=== PATIENT | male | born 1975 | race Caucasian/White ===

== ENCOUNTER 2017-07-31 14:52 | Emergency (ER) | payer MEDICAID ==
[2017-07-31 15:01] VITALS: TEMP 98.1
--- NOTE | 2017-07-31 15:21 | EDPHY ---
H & P Stated Complaint: Back pain/sciatica exacerbation~2wks;MRI scheduled next week Time Seen by Provider: 07/31/17 15:18 HPI/ROS: CHIEF COMPLAINT: Chronic back pain HISTORY OF PRESENT ILLNESS: The patient is a 42 y/o male complaining of worsening chronic back pain and sciatica for the past 3 weeks. 2 years ago he developed at L2-L3 disc herniation bed injury was treated with physical therapy the patient reports that he has been doing well and off of all narcotic pain medications for his back for quite some time. 3 weeks ago he was lifting something heavy and tweaked his back. He was seen at [facility] ED for the back pain, they prescribed him Percocet. He has also been using ibuprofen, which does not provide much relief. He saw his orthopedic referral and has a MRI scheduled for next week. He reports he is currently out of pain medications and that no one in the orthopedic office can see him until next week. He was advised come to the emergency department. Patient denies IV drug use. No fever, chills, chest pain, shortness of breath, palpitations, vomiting, diarrhea, urinary complaints, headache, lightheadedness. REVIEW OF SYSTEMS: Aside from elements discussed in the HPI, a comprehensive 10-point review of systems was reviewed and is negative. PAST MEDICAL HISTORY: Chronic back pain, sciatica SOCIAL HISTORY: Lives in [place], single, tobacco use VITAL SIGNS: HR: 104, BP: 145/99, others reviewed by me GENERAL: Uncomfortable appearing when moving around the bed. Well-developed, well-nourished, in no respiratory distress. HEENT: Atraumatic. Eyes: No icterus, no injection. Mouth: moist mucous membranes. No erythema or lesions. Neck: supple with no adenopathy. LUNGS: Clear to auscultation bilaterally, no wheezes, rhonchi or rales. CARDIAC: Regular rate and rhythm, no rubs, murmurs or gallops. ABDOMEN: Soft, nontender, nondistended, bowel sounds normal. BACK: Diffuse tenderness to palpation on lumbar spine. No point tenderness. No swelling. No CVA tenderness. No erythema. EXTREMITIES: No trauma. No edema. Range of motion is normal throughout, although movement of the right lower extremity elicits increased back pain. NEURO: Neurological exam: Straight leg raise test on the right elicits pain radiating into the buttocks and posterior right thigh. Hip flexion, knee extension, knee flexion, dorsiflexion and plantar flexion are 5/ 5 bilaterally. EHL 5 over 5. Sensation is intact to light touch throughout. 2+ knee and ankle jerk bilaterally. Vascular exam: Dorsalis pedis and posterior tibial pulses are intact. Brisk capillary refill. Alert and oriented. SKIN: Warm and dry, no rash. PSYCHIATRIC: Normal mentation, no agitation. Portions of this note were transcribed by a medical parasitologist. I personally performed a history, physical exam, medical decision making, and confirmed accuracy of information the transcribed note. - Personal History Current Tetanus Diphtheria and Acellular Pertussis (TDAP): Yes - Medical/Surgical History Hx Asthma: No Hx Chronic Respiratory Disease: No Hx Diabetes: No Hx Cardiac Disease: No Hx Renal Disease: No Hx Cirrhosis: No Hx Alcoholism: No Hx HIV/AIDS: No Hx Splenectomy or Spleen Trauma: No Other PMH: chronic back pain/sciatica. "narrow heart valve" - Social History Smoking Status: Current every day smoker Constitutional: Initial Vital Signs Temperature (C) 36.7 C 07/31/17 14:54 Heart Rate 104 H 07/31/17 14:54 Respiratory Rate 18 07/31/17 14:54 Blood Pressure 145/99 H 07/31/17 14:54 O2 Sat (%) 98 07/31/17 14:54 O2 Delivery Mode Room Air Allergies/Adverse Reactions: hydrocodone Allergy (Mild, Verified 07/31/17 14:59) itchy rash Home Medications: Medication Instructions Recorded Cyclobenzaprine [Flexeril 10 MG 10 mg PO TID PRN #15 tab 07/31/17 (*)] Gabapentin [Neurontin 300 MG (*)] 300 mg PO HS #10 cap 07/31/17 Tramadol HCl 50 mg PO QID PRN #20 tablet 07/31/17 methylPREDNISolone [Medrol Dose 4 mg PO DAILY #1 each 07/31/17 Nick] Medical Decision Making ED Course/Re-evaluation: The patient is a 42 y/o male with prior history of back pain and disc herniation presents following an acute exacerbation of his pain 3 weeks ago. Patient received non opiate medications for his pain. He was given ketamine IV , Decadron IV, Toradol IV, and lidocaine patch. 1545: Reassessed patient, his pain is not better. He is frustrated that he is unable to follow up with neurosurgery until next week and expresses frustration that he cannot work secondary to the pain. Patient feels his pain is best managed with small doses of opiates which providers have been reluctant to provide to him. I advised the patient that I would be able to treat his discomfort in the emergency department small dose of IV narcotic but would not discharged him with oral narcotics. We discussed other management strategies for the patient's pain. I encouraged him to follow up with Neurosurgery as soon as possible and to consider local injection. 1mg IV Dilaudid administered. Reassessed patient, he is feeling better. Return precautions provided; patient is comfortable with this plan. Differential Diagnosis: After history was obtained and physical exam performed, the differential for back pain was considered including but not limited to muscular pain, herniated disc, spine fracture, intra-abdominal causes, and urinary tract infection. - Data Points Medications Given: Discontinued Medications Dexamethasone (Decadron Injection) 8 mg IVP EDNOW ONE Stop: 07/31/17 15:35 Last Admin: 07/31/17 15:52 Dose: 8 mg Diazepam (Valium Injection) 5 mg IVP EDNOW ONE Stop: 07/31/17 15:35 Last Admin: 07/31/17 15:53 Dose: 5 mg Gabapentin (Neurontin) 600 mg PO EDNOW ONE Stop: 07/31/17 15:35 Last Admin: 07/31/17 15:53 Dose: 600 mg Hydromorphone HCl (Dilaudid) 1 mg IVP EDNOW ONE Stop: 07/31/17 16:48 Last Admin: 07/31/17 17:09 Dose: 1 mg Ketamine HCl (Ketamine) 15 mg 0.2 mg/kg (15 mg) IVP EDNOW ONE Stop: 07/31/17 15:35 Last Admin: 07/31/17 15:53 Dose: 15 mg Ketorolac Tromethamine (Toradol) 15 mg IVP EDNOW ONE Stop: 07/31/17 15:35 Last Admin: 07/31/17 15:53 Dose: 15 mg Lidocaine (Lidoderm 5%) 1 ea TD EDNOW ONE Stop: 07/31/17 15:35 Last Admin: 07/31/17 15:53 Dose: 1 ea Departure - Departure Disposition: Home, Routine, Self-Care Clinical Impression: Back pain Qualifiers: Back pain location: low back pain Chronicity: acute Back pain laterality: midline Sciatica presence: with sciatica Sciatica laterality: sciatica of right side Qualified Code(s): M54.41 - Lumbago with sciatica, right side Condition: Good Instructions: Acute Low Back Pain (ED), Lower Back Exercises (ED) Additional Instructions: Musculoskeletal pain is often treated with anti-inflammatories, muscle relaxants , and pain medications. ANTI-INFLAMMATORIES 1. I recommend Ibuprofen (Motrin, Advil) or Naproxen Sodium (Aleve) for pain and anti-inflammatory effects. You may take either one, but do not take both. Your dose is: Ibuprofen 600 mg every 6-8 hours with food. OR Naproxen Sodium (Aleve) 220 mg every 12 hours. You have also been given a prescription for a Medrol Dosepak to use as directed to treat inflammation. Please begin taking this tomorrow. MUSCLE RELAXANT 2. For muscle relaxation, you been given a prescription of Flexeril. Please take this as directed. It may make you sleepy. PAIN MEDICATION 3. For pain relief, I suggest high-dose Tylenol (650mg-1000mg of Tylenol) up to 3 times a day. Not exceed 3000 mg in a 24 hour period. I also suggest lidocaine patches. 4% lidocaine patches are available over-the- counter. 4. Please take the gabapentin as directed. 300 mg at night. This will help with neuropathic pain. Follow-up for your MRI as previously scheduled. Consider physical therapy or chiropractic followup for persistent discomfort. Return to the emergency department if you experience significantly worsening pain, pain radiating into the legs, weakness, numbness or tingling, difficulties with bowel or bladder, fever, nausea, vomiting, or other concerns. Referrals: Luis Daniel Campos MD [Primary Care Provider] - As per Instructions Prescriptions: Cyclobenzaprine [Flexeril 10 MG (*)] 10 mg PO TID PRN #15 tab PRN Reason: Spasms Gabapentin [Neurontin 300 MG (*)] 300 mg PO HS #10 cap methylPREDNISolone [Medrol Dose Nick] 4 mg PO DAILY #1 each Tramadol HCl 50 mg PO QID PRN #20 tablet PRN Reason: PAIN Report Scribed for: Angi Redd Report Scribed by: Dana Reese Date of Report: 07/31/17 Time of Report: 15:21
[2017-07-31] MEDS ORDERED: KETOROLAC 15 MG/1 ML SDV IVP ONE (15:34)
[2017-07-31] MEDS ORDERED: DEXAMETHASONE 4 MG/ML VIAL IVP ONE (15:34)
[2017-07-31] MEDS ORDERED: LIDOCAINE 5% 1 EA PATCH TD ONE (15:34)
[2017-07-31] MEDS ORDERED: GABAPENTIN 300 MG CAP PO ONE (15:34)
[2017-07-31] MEDS ORDERED: DIAZEPAM 10 MG/2 ML SYR IVP ONE (15:34)
[2017-07-31] MEDS ORDERED: KETAMINE 100 MG/10 ML SYR IVP ONE (15:34)
[2017-07-31] MEDS ORDERED: HYDROmorphONE/DILAUDID 1 MG/ML INJ IVP ONE (16:47)
[2017-07-31 17:11] VITALS: BP 130/94; PULSE 75; RESP 16; O2SAT 98
[2017-07-31] MEDS ORDERED: PATCH REMOVAL 1 EA PATCH TD SCH (21:00)
== END 2017-07-31 17:43 | disposition home or self-care (01) ==
LOC: EEVIPCON 14:52
DX: M54.41 Lumbago with sciatica, right side (principal); F17.200 Nicotine dependence, unspecified, uncomplicated
CPT/HCPCS: 96374; J1100; J1170; J1885

== ENCOUNTER 2017-08-17 08:01 | Emergency (ER) | payer MEDICAID ==
[2017-08-17 08:05] VITALS: PULSE 87
--- NOTE | 2017-08-17 08:33 | EDPHY ---
H & P Stated Complaint: Twisted R knee yesterday Time Seen by Provider: 08/17/17 08:25 HPI/ROS: Chief Complaint: Right knee injury HPI: The patient presents to the ED with complaints of right medial knee pain after he twisted his knee while jumping on a bed yesterday. The patient sustained an abrasion to the medial aspect of his knee. The patient reports he has had painful ambulation since the fall. The patient denies additional injury. He denies associated numbness or weakness. REVIEW OF SYSTEMS: Neuro: no headache, numbness, weakness Musculoskeletal: as above Skin: As above Source: Patient Exam Limitations: No limitations - Personal History Current Tetanus Diphtheria and Acellular Pertussis (TDAP): Yes - Medical/Surgical History Hx Asthma: No Hx Chronic Respiratory Disease: No Hx Diabetes: No Hx Cardiac Disease: No Hx Renal Disease: No Hx Cirrhosis: No Hx Alcoholism: No Hx HIV/AIDS: No Hx Splenectomy or Spleen Trauma: No Other PMH: chronic back pain/sciatica. "narrow heart valve" - Social History Smoking Status: Current every day smoker - Physical Exam Exam: General: No acute distress Right knee: Abrasion noted along the medial aspect of the right knee, nonsuturable, no evidence of a deep puncture present. Ecchymosis noted along the medial aspect of the right knee, tenderness to palpation along the MCL ligament and proximal tibia. Neuro: Sensation intact to light touch Vascular: 2+ dorsalis pedis and posterior tibial pulses Constitutional: Initial Vital Signs Temperature (C) 37.1 C 08/17/17 08:03 Heart Rate 87 08/17/17 08:03 Respiratory Rate 16 08/17/17 08:03 Blood Pressure 142/96 H 08/17/17 08:03 O2 Sat (%) 98 08/17/17 08:03 O2 Delivery Mode Room Air Allergies/Adverse Reactions: hydrocodone Allergy (Mild, Verified 08/17/17 08:02) itchy rash Home Medications: Medication Instructions Recorded NK [No Known Home Meds] 08/17/17 Medical Decision Making - Diagnostics Imaging Results: Imaging Impressions Knee X-Ray 08/17/17 08:30 Impression: There is no acute osseous abnormality identified. If there is progression of the patient's knee pain, MR imaging could be considered. Right knee x-ray: Negative for acute fracture by my interpretation. ED Course/Re-evaluation: The patient presents the emergency department for evaluation of right knee pain. The patient's x-ray demonstrates no evidence of an obvious fracture. He does have tenderness along the medial collateral ligament. The patient will be advised to follow up with our on-call orthopedic surgeon for any unimproved symptoms as this may be the sign of a more significant soft tissue injury not seen on the x-ray today. The patient is advised to weight bear as tolerated. He should ice and take ibuprofen for management of his pain. Differential Diagnosis: Differential diagnosis considered includes fracture, sprain, dislocation Departure - Departure Disposition: Home, Routine, Self-Care Clinical Impression: Knee MCL sprain Condition: Good Instructions: Knee Sprain (ED) Additional Instructions: 1. Take Ibuprofen or Motrin 600 mg by mouth three times a day. 2. Please schedule a follow-up appointment with the orthopedic surgeon you have been referred to for any pain which persists past 5-7 days as this may be the sign of an injury not seen on the x-ray today. 3. Follow up as scheduled with Dr. Campos. Referrals: Luis Daniel Campos MD [Primary Care Provider] - As per Instructions Judith Moreno MD [Medical Doctor] - As per Instructions
[2017-08-17 10:06] VITALS: BP 141/97; RESP 18; TEMP 98.4; O2SAT 97
== END 2017-08-17 10:08 | disposition home or self-care (01) ==
DX: S83.411A Sprain of medial collateral ligament of right knee, initial encounter (principal); F17.200 Nicotine dependence, unspecified, uncomplicated; X58.XXXA Exposure to other specified factors, initial encounter; Y99.8 Other external cause status; Y93.39 Activity, other involving climbing, rappelling and jumping off

== ENCOUNTER 2017-09-09 19:20 | Emergency (ER) | payer MEDICAID ==
--- NOTE | 2017-09-09 19:57 | EDPHY ---
H & P Stated Complaint: left foot pain no injury, x3 weeks HPI/ROS: Chief complaint: Left foot pain History of present illness: This is a 42-year-old male who presents to the emergency department for left foot pain. Patient reports the onset of symptoms approximately 3 weeks ago. Symptoms have been persistent. Pain begins at the base of the great toe. However, pain radiates throughout the foot. It hurts to touch or move or ambulate on the foot. He denies precipitating factors such as trauma. He denies other associated signs or symptoms including no fevers, no abnormal warmth or coolness to the foot, no paresthesias, no involvement of the ankle or the rest the leg. He did see his primary care doctor who diagnosed him with gout and started him on indomethacin with minimal improvement. - Personal History Current Tetanus Diphtheria and Acellular Pertussis (TDAP): Yes Tetanus Vaccine Date: 2015 - Medical/Surgical History Hx Asthma: No Hx Chronic Respiratory Disease: No Hx Diabetes: No Hx Cardiac Disease: No Hx Renal Disease: No Hx Cirrhosis: No Hx Alcoholism: No Hx HIV/AIDS: No Hx Splenectomy or Spleen Trauma: No Other PMH: chronic back pain/sciatica. "narrow heart valve" - Social History Smoking Status: Light smoker - Physical Exam Exam: General: Alert, nontoxic Skin: Mild erythema over the MCP joint of the left great toe. The rest the foot is unremarkable. Musculoskeletal: Tenderness to palpation of the left 1st MCP joint. Moving all digits in the foot and moving the left ankle well. Vascular: DP and PT pulses 2+. Capillary refill brisk in the left foot. Neurologic: Sensation intact throughout the left foot. Constitutional: Initial Vital Signs Temperature (C) 37.3 C 09/09/17 19:24 Heart Rate 98 09/09/17 19:24 Respiratory Rate 18 09/09/17 19:24 Blood Pressure 137/95 H 09/09/17 19:24 O2 Sat (%) 98 09/09/17 19:24 O2 Delivery Mode Room Air Allergies/Adverse Reactions: hydrocodone Allergy (Mild, Verified 08/17/17 08:02) itchy rash Home Medications: Medication Instructions Recorded predniSONE 40 mg PO DAILY 3 Days tab 09/09/17 traMADol [Ultram 50 mg (*)] 50 mg PO Q4 #6 tab 09/09/17 Medical Decision Making - Diagnostics Imaging Results: Imaging Impressions Foot X-Ray 09/09/17 19:37 Impression: Negative for fracture. Degenerative changes at the first metatarsophalangeal articulation with other findings as detailed above. Imaging: I viewed and interpreted images myself ED Course/Re-evaluation: Patient seen under the supervision of my secondary supervising physician Dr. Ap Melton. Patient presents to the emergency department for left foot pain. The foot is neurovascularly intact. X-rays negative. Certainly this could be a joint arthropathy originating in the 1st MCP joint likely gout or pseudogout. I have discussed aspiration of the joint, he does not want to pursue this. I will treat him with a trial of prednisone as indomethacin did not work well. Pain management is further discussed. Strict return precautions are given. Patient voiced understanding and agreement with plan. Differential Diagnosis: Included but not limited to contusion, sprain or strain, arthropathies including gout, pseudogout, possibly septic joint low low suspicion given lack of fever and length of time since onset of symptoms - Data Points Medications Given: Discontinued Medications Ibuprofen (Motrin) 800 mg PO EDNOW ONE Stop: 09/09/17 20:20 Last Admin: 09/09/17 20:30 Dose: 800 mg Oxycodone/Acetaminophen (Percocet 5/325) 1 tab PO EDNOW ONE Stop: 09/09/17 20:20 Last Admin: 09/09/17 20:31 Dose: 1 tab Prednisone (Prednisone) 40 mg PO EDNOW ONE Stop: 09/09/17 20:20 Last Admin: 09/09/17 20:30 Dose: 40 mg Departure - Departure Disposition: Home, Routine, Self-Care Clinical Impression: Foot pain, left Condition: Good Instructions: Arthralgia (ED) Additional Instructions: Follow-up with Podiatry for continued evaluation and care You can use ibuprofen 600 mg 4 times a day or Tylenol 650 mg 4 times a day as needed for mild to moderate pain. You can use Tramadol every 4 hours as needed for severe pain. If symptoms worsen or new symptoms develop return to the emergency room for recheck Referrals: NONE *PRIMARY CARE P,. [Primary Care Provider] - As per Instructions Teja Herrmann DPM [Doctor of Podiatric Medicine] - As per Instructions [facility],. [Clinic] - As per Instructions Prescriptions: predniSONE 40 mg PO DAILY 3 Days tab traMADol [Ultram 50 mg (*)] 50 mg PO Q4 #6 tab
[2017-09-09] MEDS ORDERED: OXYCODONE/APAP 5/325 TAB PO ONE (20:19)
[2017-09-09] MEDS ORDERED: IBUPROFEN 800 MG TAB PO ONE (20:19)
[2017-09-09] MEDS ORDERED: predniSONE 20 MG TAB PO ONE (20:19)
[2017-09-09 20:32] VITALS: BP 133/96; PULSE 93; RESP 16; TEMP 98.8; O2SAT 96
== END 2017-09-09 20:32 | disposition home or self-care (01) ==
DX: M79.672 Pain in left foot (principal); F17.200 Nicotine dependence, unspecified, uncomplicated

== ENCOUNTER 2017-09-10 13:54 | Emergency (ER) | payer MEDICAID ==
[2017-09-10 14:07] VITALS: RESP 16; O2SAT 96
--- NOTE | 2017-09-10 14:53 | EDPHY ---
H & P Stated Complaint: seen yest for same, c/o L foot pain - no known inj Source: Patient Exam Limitations: No limitations - Personal History Tetanus Vaccine Date: 2015 - Medical/Surgical History Hx Asthma: No Hx Chronic Respiratory Disease: No Hx Diabetes: No Hx Cardiac Disease: No Hx Renal Disease: No Hx Cirrhosis: No Hx Alcoholism: No Hx HIV/AIDS: No Hx Splenectomy or Spleen Trauma: No Other PMH: chronic back pain/sciatica. 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 He was seen this ER yesterday with a foot x-ray that showed degenerative changes at the left 1st digit, hallux valgus. He was given a prescription for tramadol at 1st he said he did not fill because it is nothing more than Tylenol but then when questioned further he said he did fill a but has not relieved his pain. He keeps asking for narcotics over and over again for his pain. He has not followed up with Orthopedics/Podiatry/PCP as advised. He denies redness/warmth/fever. No history of gout. Modifying Factors: None Comment: ROS: see HPI Constitutional: No fever, no chills, no weight loss Eyes: No blurred vision Respiratory: No shortness of breath, no cough Cardiovascular: No chest pain Gastrointestinal: No nausea, no vomiting no diarrhea Genitourinary: No dysuria Extremities: No myalgias Neurologic: No weakness, no numbness Skin: No rashes Hematologic: No bruising, no bleeding MEDICAL/SURGICAL/SOCIAL HISTORY: Medical history: chronic back pain/sciatica "narrow heart valve" Surgical history: Denies Social history: . Employed. CONSTITUTIONAL: Labile adult white male who is nontoxic in appearance, awake and alert, no obvious distress HEENT: Atraumatic and normocephalic, PERRL, EOMI. Tympanic membranes clear. Oropharynx clear, no exudate and moist pink mucosa. Airway patent. No lymphadenopathy. No meningismus. Cardiovascular: Normal S1/S2, regular rate, regular rhythm, without murmur rub or gallop. PULMONARY/CHEST: Symmetrical and nontender. Clear to auscultation bilaterally. Good air movement. No accessory muscle usage. ABDOMEN: Soft, nondistended, nontender, no rebound, no guarding, no peritoneal signs, no masses or organomegaly. No CVAT. EXTREMITIES: 2/2 DP and PT pulses, pedal strength 5/5, left great toe at the M CP joint shows nodular deformities, hallux valgus deformity and increased callus on the lateral aspect consistent with a bunion. DIP/PIP flexion, extension, light touch sensation intact. No erythema/warmth/fluctuance appreciated. no clubbing, no cyanosis or edema. NEUROLOGICAL: no focal neuro deficits. GCS 15. SKIN: Warm and dry, no erythema. no rash. Good capillary refill. (Soila Gould) Constitutional: Initial Vital Signs Temperature (C) 36.9 C 09/10/17 14:05 Heart Rate 102 H 09/10/17 14:05 Respiratory Rate 16 09/10/17 14:05 Blood Pressure 123/87 H 09/10/17 14:05 O2 Sat (%) 96 09/10/17 14:05 O2 Delivery Mode Room Air Allergies/Adverse Reactions: hydrocodone Allergy (Mild, Verified 09/10/17 14:08) itchy rash Home Medications: Medication Instructions Recorded predniSONE 40 mg PO DAILY 3 Days tab 09/09/17 traMADol [Ultram 50 mg (*)] 50 mg PO Q4 #6 tab 09/09/17 Carisoprodol [Soma (*)] 350 mg PO Q8 PRN #12 tab 09/10/17 Medical Decision Making Procedures: Procedure: Splint placement. A left orthotic shoe was applied by the emergency retail merchandiser technician. After application of the splint I returned and re-examined the patient. The splint was adequately immobilizing the joint and distal to the splint the patient's circulation and sensation was intact. Procedure: Left great toe digital block. Verbal consent was obtained from the patient after discussing the risks of infection, pain. The left great toe at the MCP joint was anesthetized in the usual fashion using 5 mL of bupivacaine digital block. The patient tolerated procedure well and had moderate relief of pain in short time. The procedure was performed by myself. (Soila Gould) ED Course/Re-evaluation: Reviewed the x-ray from yesterday and no fracture/dislocation appreciated. Patient appears to have mild hallux valgus with bunion and local irritation. No signs of neurovascular compromise/tenting of skin/compartment syndrome/ extremities and joints examined above and below area of concern and are neurovascularly intact/gouty arthropathy/cellulitis/abscess. Patient was insistent on narcotics prescription for same. Given p.o. Percocet x1 only with a script for Soma. Digital block performed for immediate relief of pain. Placed in orthotic shoe and given crutches for nonweightbearing status to advance as tolerated Would benefit with Podiatry follow-up Work note provided per request Patient is exhibiting opiate seeking behavior. This patient was seen under the supervision of my secondary supervising physician. I evaluated care for this patient independently. Discussed this patient with Dr. Redd who did not see the patient. (Soila Gould) Differential Diagnosis: Differential doses includes but not limited to contusion, degenerative changes, bunion, nerve injury, ligament injury, fracture. (Soila Gould) Other Provider: The patient was evaluated and managed by the Physician Cashier. I discussed the patient's presentation and course with the physician fundraising assistant and agree with the evaluation. My co-signature indicates that I have reviewed this chart and I agree with the findings and plan of care as documented. I am the secondary supervising physician. (Angi Redd) - Data Points Medications Given: Discontinued Medications Oxycodone/Acetaminophen (Percocet 5/325) 1 tab PO EDNOW ONE Stop: 09/10/17 15:33 Last Admin: 09/10/17 15:49 Dose: 1 tab Departure - Departure Disposition: Home, Routine, Self-Care Clinical Impression: Bunion of right foot, Hallux valgus (acquired), left foot Condition: Good Instructions: Carisoprodol (By mouth), Bunion (ED), Bunionectomy (DC) Additional Instructions: Wear orthotic shoe when out of bed and use crutches to aid ambulation starting with only heel touch weight-bearing status and advance as tolerated. Take Tylenol 650 mg every 4 hours and/or Ibuprofen 600 mg every 8 hours with food as needed for pain. Apply ice for 30 minutes at a time; 2-3 times per day for the next 1-2 days. Purchase a bunion pad [id number] to distribute the friction and eliminate pain while wearing your normal shoes. Follow up with Podiatry in 7-10 days at which time they will evaluate and recommend with you if conservative management versus surgery is indicated. The x-rays obtained in the emergency department today demonstrate no evidence of an obvious fracture. Sometimes fractures are not obvious on the initial set of x-rays performed in the ED. For this reason, you should have repeat x-rays performed in 7-10 days if you are having any pain exclude the possibility of an occult fracture. Referrals: Teja Herrmann DPM [Doctor of Podiatric Medicine] - As per Instructions Stand Alone Forms: Work Excuse Prescriptions: Carisoprodol [Soma (*)] 350 mg PO Q8 PRN #12 tab PRN Reason: Pain, Severe
[2017-09-10] MEDS ORDERED: OXYCODONE/APAP 5/325 TAB PO ONE (15:32)
[2017-09-10 16:16] VITALS: BP 136/86; PULSE 100; TEMP 98.6
== END 2017-09-10 16:12 | disposition home or self-care (01) ==
PROC: 3E0T3BZ Introduction of Anesthetic Agent into Peripheral Nerves and Plexi, Percutaneous Approach (ICD-10-PCS; principal; 2017-09-10)
DX: M20.12 Hallux valgus (acquired), left foot (principal); M20.11 Hallux valgus (acquired), right foot; F17.200 Nicotine dependence, unspecified, uncomplicated

== ENCOUNTER 2017-10-26 19:40 | Emergency (ER) | payer MEDICAID ==
--- NOTE | 2017-10-26 20:24 | EDPHY ---
H & P Time Seen by Provider: 10/26/17 19:56 HPI/ROS: Chief complaint. Back pain HPI. 42-year-old male with history of chronic back pain presents with right lower back and posterior right thigh pain. Began this afternoon when he was changing and lifting at tire that was on a lift. He felt a sharp pain in his right low back and then went to his posterior right thigh. Hurts to walk and movement and raising his leg. However no bowel or bladder symptoms or leg weakness. He does have slight altered sensation to the posterior left thigh as he feels it somewhat asleep. He has had similar symptoms previously ROS Constitutional. no fever/chills, no weakness Eyes. no problems with vision ENT. no sore throat, no nasal drainage Cardiovascular. no chest pain Respiratory. no shortness of breath, no cough Abdominal. no abdominal pain, no nausea/vomiting, no diarrhea . no problems urinating MS. Low back pain and posterior right thigh pain Skin. no rash Lymph. no swollen glands Neuro. no headache, no dizziness, no difficulty walking or with speech Past Medical/Surgical History: Chronic low back pain with sciatica Social History: Single, daily smoker, no alcohol Smoking Status: Light smoker Physical Exam: General Appearance: Alert well-developed male mild distress vital signs are stable Eyes: Pupils equal and round no pallor or injection. ENT, Mouth: Mucous membranes are moist. Respiratory: There are no retractions, lungs are clear to auscultation. Cardiovascular: Regular rate and rhythm. Gastrointestinal: Abdomen is soft and nontender, no masses, bowel sounds normal. Neurological: Awake and alert, sensory and motor exams grossly normal. Straight leg raising positive at 30 degrees on the right. Negative on the left. Deep tendon reflexes are symmetrical. Great toe strength is normal. Subjective altered sensation posterior right thigh Skin: Warm and dry, no rashes. Musculoskeletal: Neck is supple nontender. Extremities symmetrical, full range of motion. Psychiatric: Patient is oriented X 3, there is no agitation. Constitutional: Initial Vital Signs Temperature (C) 37.1 C 10/26/17 19:45 Heart Rate 98 10/26/17 19:45 Respiratory Rate 15 10/26/17 19:45 Blood Pressure 124/80 H 10/26/17 19:45 O2 Sat (%) 97 10/26/17 19:45 O2 Delivery Mode Room Air Allergies/Adverse Reactions: hydrocodone Allergy (Mild, Verified 09/10/17 14:08) itchy rash Home Medications: Medication Instructions Recorded CYCLOBENZAPRINE HCL [Flexeril] 5 mg PO TIDPRN PRN #10 tab 10/26/17 Lidocaine 5% [Lidoderm 5% Patch 2 ea TD DAILY #30 patch 10/26/17 (*)] Medical Decision Making Procedures: Ibuprofen, lidocaine patch, Flexeril ED Course/Re-evaluation: Patient and I discussed treatment plan including criteria for return importance of follow-up and further evaluation. He expresses understanding and agreement Differential Diagnosis: Likely this is muscular low back pain with sciatica. There is no bowel or bladder symptoms or leg weakness that would suggest cauda equina syndrome. I have also considered HNP Departure - Departure Disposition: Home, Routine, Self-Care Clinical Impression: Low back pain Qualifiers: Chronicity: acute Back pain laterality: right Sciatica presence: with sciatica Sciatica laterality: sciatica of right side Qualified Code(s): M54.41 - Lumbago with sciatica, right side Condition: Good Instructions: Low Back Strain (ED) Additional Instructions: Ice to low back next 24 hr. Ibuprofen 600 mg every 6 hr. Flexeril as muscle relaxer a 8 hr. Lidocaine patch to be used for 12 hr and then off for 12 hr and then may be re-applied. Return for leg weakness, bowel or bladder symptoms. Re-evaluation in 2-3 days if not improving Referrals: NONE *PRIMARY CARE P,. [Primary Care Provider] - [facility] per Instructions [facility] - 2-3 days, if not improved Prescriptions: CYCLOBENZAPRINE HCL [Flexeril] 5 mg PO TIDPRN PRN #10 tab PRN Reason: Spasms Lidocaine 5% [Lidoderm 5% Patch (*)] 2 ea TD DAILY #30 patch
[2017-10-26] MEDS ORDERED: ACETAMINOPHEN 500 MG TAB PO ONE (20:47)
[2017-10-26] MEDS ORDERED: IBUPROFEN 600 MG TAB PO ONE (20:47)
[2017-10-26] MEDS ORDERED: CYCLOBENZAPRINE 10 MG TAB PO ONE (20:47)
[2017-10-26] MEDS ORDERED: LIDOCAINE 4%/MENTHOL 1% PATCH TD ONE (20:47)
[2017-10-26] MEDS ORDERED: PATCH REMOVAL 1 EA PATCH TD SCH (21:00)
[2017-10-26 21:04] VITALS: BP 122/80; PULSE 84; RESP 18; TEMP 98.4; O2SAT 96
== END 2017-10-26 21:07 | disposition home or self-care (01) ==
DX: M54.41 Lumbago with sciatica, right side (principal); F17.200 Nicotine dependence, unspecified, uncomplicated

== ENCOUNTER 2017-11-03 12:40 | Emergency (ER) | payer MEDICAID ==
[2017-11-03 12:45] VITALS: TEMP 98.2
--- NOTE | 2017-11-03 13:00 | EDPHY ---
H & P Stated Complaint: cp Time Seen by Provider: 11/03/17 12:59 HPI/ROS: CHIEF COMPLAINT: Chest tightness HISTORY OF PRESENT ILLNESS: The patient is a 42 y/o male complaining of intermittent chest tightness onset 02:00 this morning, almost 12 hours ago. His pain lasts for 2-3 hours at a time. He had associated dyspnea and left arm aching. He was able to fall back asleep for a while. Later this morning the pain returned while he was making the bed and moving around his house so he came to the ED for evaluation. His pain is exacerbated by breathing and is currently present. He notes he was able to walk here and his pain seemed to decrease during that activity. He denies any recent trauma or illness. No leg pain or swelling, recent long travel, weakness, paresthesias, nausea, diaphoresis. He has not taken anything for pain. Three years ago he went to [facility] for similar symptoms. By his report, they performed a treadmill study, echocardiogram, and a cardiac catheterization and he was told he had a "blocked artery and a really small valve." He denies personal history of hypertension or diabetes. He chews tobacco. He does not know what his lipids usually are. He has a concerning family history for CAD with his brother dying at age 42 from and NM and his father had MIs in his mid- 40s. REVIEW OF SYSTEMS: A ten point review of systems was performed and is negative with the exception of the items mentioned in the HPI. Past medical history: Chronic back pain with sciatica, unclear cardiac history. Past surgical history: Cardiac catheterization at [facility] 3 years ago. Family history: Brother age 42 from [place]. Father had NM in mid 40s. Grandfather had MIs at unknown age. Social history: Chews tobacco. No alcohol or illicit drugs. Currently works at [email or web address]. PCP: Dr. Campos. Prior medical records reviewed including ED visit 10/26/15 for chronic back pain. Limited information on [facility] records from 09/14/15 reports cath showed no CAD, LVEF 65-70%, small LVH. General Appearance: Alert. Vital signs reviewed. Blood pressure 141/94 at triage. Eyes: Pupils equal and round, no conjunctival injection, no discharge. Anicteric. ENT, Mouth: Mucous membranes are moist, no oropharyngeal erythema or edema. Neck: No lymphadenopathy, supple. Respiratory: Lungs are clear to auscultation; no wheezes, rales, or rhonchi. Cardiovascular: Regular rate and rhythm; no murmur, rub, or gallop. Gastrointestinal: Abdomen is soft and nontender, no masses or organomegaly. Skin: Warm and dry, no rashes on exposed skin, normal color. Back: Nontender to palpation over the thoracolumbar spine. No CVAT. Extremities: No lower extremity edema, no calf tenderness or swelling. Neurological: Alert and oriented. Moving all four extremities easily and equally. Psychiatric: Normal affect. - Personal History Current Tetanus/Diphtheria Vaccine: Yes Tetanus Vaccine Date: 2015 - Medical/Surgical History Hx Asthma: No Hx Chronic Respiratory Disease: No Hx Diabetes: No Hx Cardiac Disease: Yes Hx Renal Disease: No Hx Cirrhosis: No Hx Alcoholism: No Hx HIV/AIDS: No Hx Splenectomy or Spleen Trauma: No Other PMH: chronic back pain/sciatica. "narrow heart valve" - Social History Smoking Status: Light smoker Constitutional: Initial Vital Signs Temperature (C) 36.8 C 11/03/17 12:43 Heart Rate 92 11/03/17 12:43 Respiratory Rate 18 11/03/17 12:43 Blood Pressure 141/94 H 11/03/17 12:43 O2 Sat (%) 94 11/03/17 12:43 O2 Delivery Mode Room Air O2 (L/minute) 2 Allergies/Adverse Reactions: hydrocodone Allergy (Mild, Verified 11/04/17 12:30) itchy rash Home Medications: Medication Instructions Recorded Aspirin 81mg (*) 11/03/17 Medical Decision Making - Diagnostics EKG Interpretation: 12 lead EKG is interpreted in Trace master View by emergency department physician. Imaging: I viewed and interpreted images myself ED Course/Re-evaluation: This is a 42 y/o male who presents with 12-hour history of intermittent chest tightness and pleuritic pain with associated dyspnea. He is well-appearing and his exam is unremarkable. He has a concerning family history for cardiac disease at a young age. Plan for standard cardiac work up with IV, labs, EKG, chest x-ray. Will attempt to obtain records from [facility] regarding reported catheterization. The 12 lead EKG was interpreted by myself. Sinus rhythm rate 97. See hard copy and/or "tracemaster" electronic copy for interpretation. Negative troponin. Limited records available via [facility] show a negative cardiac cath 08/2015, normal EF, and small amount of LVH. We are attempting to obtain complete records from [facility]. Negative D-dimer. PE quite unlikely. No evidence of pneumonia or pneumothorax on chest x-ray. I was able to review records from [facility]. His cardiac catheterization, performed in August of 2015, showed moderate left ventricular hypertrophy, LVEF 65-70%, no evidence of coronary artery disease, and a distal 1/3 of the LAD that was smaller than the caliber of DX-2. I was able to review EKGs done at that time. Today's EKG here is without signs of ischemia. However, I note that at that time he was taking antihypertensive medications. Tells me that these medications have been discontinued. Blood pressures here have been in the 120-130/90 range. At 3:00 p.m. He continues with chest pain, mild to moderate. It is substernal, as it has been. There is no radiation. Repeat EKG is ordered. Will try sublingual nitroglycerin. In the past he has had headache with sublingual nitroglycerin so will give Tylenol simultaneously. 3:20 p.m.: Repeat EKG is unchanged. Patient does not want to take sublingual nitroglycerin or Tylenol. He tells me now that he is feeling better and would like to return home. His HEART score is 2, putting him in the low risk category with less than 1.7% chance of a major acute coronary event within the next 6 weeks. Although he has a low HEART score, he continues with some chest pain. He is offered hospitalization but is not interested in further evaluation at this time. We reviewed the danger signs that should prompt him to be re-evaluated immediately. I have advised him to see his primary care provider, Dr. Campos, next week. He is aware that his blood pressure was mildly elevated today in the emergency department and that this needs to be rechecked by his primary care provider. Differential Diagnosis: Chest pain including but not limited to myocardial ischemia, pulmonary embolus, pericarditis, chest wall pain, pleural inflammation and pulmonary infectious causes. - Data Points Laboratory Results: Laboratory Results 11/03/17 13:05 11/03/17 13:05 Medications Given: Discontinued Medications Acetaminophen (Tylenol) 650 mg PO EDNOW ONE Stop: 11/03/17 15:13 Last Admin: 11/03/17 15:34 Dose: Not Given Aspirin (Aspirin) 325 mg PO EDNOW ONE Stop: 11/03/17 13:07 Last Admin: 11/03/17 13:11 Dose: 325 mg Departure - Departure Disposition: Home, Routine, Self-Care Clinical Impression: Chest pain Qualifiers: Chest pain type: other chest pain Qualified Code(s): R07.89 - Other chest pain ; R07.8 - Other chest pain Condition: Good Instructions: Chest Pain (ED) Additional Instructions: Follow up with her primary care provider, Dr. Campos at [facility], next week. Return to the ED for any worsening of condition. If you have persistent chest pain, shortness of breath, pain in your arm or jaw, any new or concerning symptoms you should be re-evaluated. I am also providing a referral to a last picker, Dr. Dinh Wheeler. I recommend cardiology follow-up. Referrals: Luis Daniel Campos MD [Primary Care Provider] - As per Instructions Dinh Wheeler MD [Medical Doctor] - As per Instructions Report Scribed for: Ledy Grant Report Scribed by: Lexie Rodriguez Date of Report: 11/03/17 Time of Report: 13:17 Physician Review and Approval Statement: 11/03/17 13:00 Portions of this note were transcribed by the esthetician and manager medical spa. I, Dr. Ledy Grant, personally performed the history, physical exam, and medical decision- making; and confirmed the accuracy of the information in the transcribed note.
[2017-11-03] MEDS ORDERED: ASPIRIN 325 MG TAB PO ONE (13:06)
--- NOTE | 2017-11-03 13:08 | CPEKG ---
Heart Rate: 97 RR Interval: 619 P-R Interval: 156 QRSD Interval: 82 QT Interval: 348 QTC Interval: 442 P [place]: 65 QRS [place]: 85 T Wave [place]: 20 EKG Severity - NORMAL ECG - EKG Impression: SINUS RHYTHM Electronically Signed By: Ledy Grant 03-Nov-2017 16:26:04
[2017-11-03 13:13] LABS: PLATELET COUNT 283 10^3/uL (150-400)
[2017-11-03] MEDS ORDERED: NITROGLYCERIN 0.4 MG BTL SL PRN (15:11)
[2017-11-03] MEDS ORDERED: ACETAMINOPHEN 325 MG TAB PO ONE (15:12)
--- NOTE | 2017-11-03 15:19 | CPEKG ---
Heart Rate: 77 RR Interval: 779 P-R Interval: 176 QRSD Interval: 86 QT Interval: 380 QTC Interval: 431 P [place]: 42 QRS [place]: 79 T Wave [place]: 25 EKG Severity - NORMAL ECG - EKG Impression: SINUS RHYTHM Electronically Signed By: Ledy Grant 03-Nov-2017 16:25:59
[2017-11-03 15:38] VITALS: BP 125/92; PULSE 85; RESP 20; O2SAT 100
== END 2017-11-03 15:38 | disposition home or self-care (01) ==
DX: R07.89 Other chest pain (principal); F17.200 Nicotine dependence, unspecified, uncomplicated; Z79.82 Long term (current) use of aspirin

== ENCOUNTER 2017-11-04 12:26 | Emergency (ER) | payer MEDICAID ==
--- NOTE | 2017-11-04 13:07 | CPEKG ---
Heart Rate: 86 RR Interval: 698 P-R Interval: 164 QRSD Interval: 82 QT Interval: 356 QTC Interval: 426 P [place]: 60 QRS [place]: 86 T Wave [place]: 37 EKG Severity - NORMAL ECG - EKG Impression: SINUS RHYTHM Electronically Signed By: Hayes Penny 04-Nov-2017 18:39:43
[2017-11-04] MEDS ORDERED: predniSONE 20 MG TAB PO ONE (13:28)
--- NOTE | 2017-11-04 13:28 | EDPHY ---
H & P Stated Complaint: continued non resolution of cp/seen yesterday for same - Personal History Current Tetanus/Diphtheria Vaccine: Yes Tetanus Vaccine Date: 2015 - Medical/Surgical History Hx Asthma: No Hx Chronic Respiratory Disease: No Hx Diabetes: No Hx Cardiac Disease: Yes Hx Renal Disease: No Hx Cirrhosis: No Hx Alcoholism: No Hx HIV/AIDS: No Hx Splenectomy or Spleen Trauma: No Other PMH: chronic back pain/sciatica. "narrow heart valve" - Social History Smoking Status: Current every day smoker Constitutional: Initial Vital Signs Temperature (C) 36.9 C 11/04/17 12:31 Heart Rate 92 11/04/17 12:31 Respiratory Rate 17 11/04/17 12:31 Blood Pressure 124/90 H 11/04/17 12:31 O2 Sat (%) 96 11/04/17 12:31 O2 Delivery Mode Room Air Allergies/Adverse Reactions: hydrocodone Allergy (Mild, Verified 11/04/17 12:30) itchy rash Home Medications: Medication Instructions Recorded Aspirin 81mg (*) 11/03/17 Medical Decision Making ED Course/Re-evaluation: CHIEF COMPLAINT: Chest pain HISTORY OF PRESENT ILLNESS: The patient is a 42 y/o male who returns to the ED for the second time in 24 hours complaining of chest pain. While here yesterday he had a normal EKG, chest x-ray that suggested airways disease, normal troponin , and normal d-dimer. Prior work up at [facility] including cardiac catheterization reviewed yesterday was also largely normal apart from moderate LVH and slightly small distal 1/3 of his LAD. There was no evidence of CAD. Today he states his pain continues to be intermittent and feels like something is "squeezing my whole chest." He has had a mild cough recently. He denies any history of respiratory disease. He does report a family history of CAD at a young age. REVIEW OF SYSTEMS: A 10 point review of systems was performed and is negative with the exception of the elements mentioned in the history of present illness. PHYSICAL EXAM: HR, BP, O2 Sat, RR. Temp noted General Appearance: Alert, well hydrated, appropriate, and non-toxic appearing. Head: Atraumatic without scalp tenderness or obvious injury Eyes: Pupils equal, round, reactive to light and accommodation, EOMI, no trauma , no injection. Nose: Atraumatic, no rhinorrhea, clear. Throat: Mucus membranes moist. Neck: Supple, non-tender, no lymphadenopathy. Respiratory: No retractions, no distress, and no accessory muscle use. Mild end expiratory wheezing to auscultation bilaterally. Cardiovascular: Regular rate and rhythm, no murmurs, rubs, or gallops. Good capillary refill all extremities. Gastrointestinal: Abdomen is soft, non-tender, non-distended, no masses, no rebound, no guarding, no peritoneal signs. Musculoskeletal: Normal active ROM of all extremities, atraumatic. Neurological: Alert, appropriate, and interactive. The patient has non-focal cranial nerves, motor, sensory, and cerebellar exam. Skin: No rashes, good turgor, no nodules on palpation. PAST MEDICAL HISTORY: LVH, chronic back pain, history narcotic abuse. PAST SURGICAL HISTORY: Cardiac cath 3-4 years ago SOCIAL HISTORY: In a work release program. Daily smoker. The 12 lead EKG was interpreted by myself. Sinus rhythm rate 86. See hard copy and/or "tracemaster" electronic copy for interpretation. DIFFERENTIAL DIAGNOSIS: The differential diagnosis for the patient's chest pain included but was not limited to myocardial ischemia, pulmonary embolus, chest wall pain, pleural inflammation, and pulmonary infectious causes. MEDICAL DECISION MAKING: This is a 42 y/o male who presents with recurrent, intermittent, mild chest pain. He had a largely negative work up yesterday for the same complaint. Today he has some mild expiratory wheezes that could indicate and infectious or respiratory cause for his symptoms. EKG is unchanged. He will be discharged with albuterol and prednisone for likely reactive airways disease as seen on the chest x-ray yesterday. He understands he needs to follow up with his PCP as planned this week. Return precautions discussed. - Data Points Medications Given: Discontinued Medications Albuterol Sulfate (Proventil Inh Prepack) 1 mdi TAKEHOME EDNOW ONE Stop: 11/04/17 13:30 Last Admin: 11/04/17 13:54 Dose: 1 mdi Prednisone (Prednisone) 40 mg PO EDNOW ONE Stop: 11/04/17 13:29 Last Admin: 11/04/17 13:51 Dose: 40 mg Departure - Departure Disposition: Home, Routine, Self-Care Clinical Impression: Chest pain Qualifiers: Chest pain type: other chest pain Qualified Code(s): R07.89 - Other chest pain Mild reactive airways disease Qualifiers: Asthma persistence: unspecified Qualified Code(s): J45.909 - Unspecified asthma , uncomplicated Condition: Good Instructions: Albuterol (By breathing), Chest Pain (ED), Reactive Airways Disease (ED) Additional Instructions: 1. Use albuterol nebulizer as prescribed for symptoms. 2. Take 600mg ibuprofen every 6-8 hours as needed for pain over the next few days. 3. Follow up with your primary care provider as planned this week. 4. Return for worsening of condition. Referrals: Luis Daniel Campos MD [Primary Care Provider] - As per Instructions Report Scribed for: Hayes Penny Report Scribed by: Lexie Rodriguez Date of Report: 11/04/17 Time of Report: 13:28
[2017-11-04] MEDS ORDERED: ALBUTEROL INH PREPACK MDI TAKEHOME ONE (13:29)
[2017-11-04 13:56] VITALS: BP 133/64; PULSE 82; RESP 18; TEMP 98.6; O2SAT 97
== END 2017-11-04 13:56 | disposition home or self-care (01) ==
DX: R07.89 Other chest pain (principal); J45.909 Unspecified asthma, uncomplicated; F17.200 Nicotine dependence, unspecified, uncomplicated; Z79.82 Long term (current) use of aspirin
CPT/HCPCS: J7512

== ENCOUNTER 2017-11-07 15:52 | Emergency (ER) | payer MEDICAID ==
[2017-11-07 16:02] VITALS: RESP 16; TEMP 98.6
--- NOTE | 2017-11-07 16:25 | EDPHY ---
H & P Time Seen by Provider: 11/07/17 16:15 HPI/ROS: Chief complaint. Out of meds HPI. Patient is a 42-year-old male with cardiac history and has been seen recently on November 03 and in our emergency department for chest pain. Workup is normal. He has been out of his blood pressure medications for 4 months. He called his PCP who can't see him until Monday. He would like to get started on his blood pressure meds again as his blood pressure is high. He has no chest pain or shortness of breath now. He does have a cardiac history of chest pain and had a with heart catheterization 3 years ago at [facility] which showed moderate LVH and small distal 1/3 of the LAD. There is family history of coronary artery disease. Patient has no symptoms of a noting his blood pressure is high ROS Constitutional. High blood pressure Eyes. no problems with vision ENT. no sore throat, no nasal drainage Cardiovascular. no chest pain Respiratory. no shortness of breath, no cough Abdominal. no abdominal pain, no nausea/vomiting, no diarrhea . no problems urinating MS. no calf pain/swelling, no neck/back pain, no joint pain Skin. no rash Lymph. no swollen glands Neuro. no headache, no dizziness, no difficulty walking or with speech Past Medical/Surgical History: Past medical history chronic back pain, hypertension, cardiac catheterization Family history coronary artery disease in brother and father who had MIs in their 40s Social History: Single, daily smoker, no alcohol Smoking Status: Current every day smoker Physical Exam: General Appearance: Alert well-developed male mild distress vital signs significant for heart rate 103 and blood pressure 127/102 Eyes: Pupils equal and round no pallor or injection. ENT, Mouth: Mucous membranes are moist. Respiratory: There are no retractions, lungs are clear to auscultation. Cardiovascular: Regular rate and rhythm. Gastrointestinal: Abdomen is soft and nontender, no masses, bowel sounds normal. Neurological: Awake and alert, sensory and motor exams grossly normal. Skin: Warm and dry, no rashes. Musculoskeletal: Neck is supple nontender. Extremities symmetrical, full range of motion. Psychiatric: Patient is oriented X 3, there is no agitation. Constitutional: Initial Vital Signs Temperature (C) 37 C 11/07/17 16:00 Heart Rate 103 H 11/07/17 16:00 Respiratory Rate 16 11/07/17 16:00 Blood Pressure 127/102 H 11/07/17 16:00 O2 Sat (%) 97 11/07/17 16:00 O2 Delivery Mode Room Air Allergies/Adverse Reactions: hydrocodone Allergy (Mild, Verified 11/07/17 15:59) itchy rash Home Medications: Medication Instructions Recorded Aspirin 81mg (*) 11/03/17 Lisinopril 10 mg PO DAILY #10 tablet 11/07/17 Metoprolol Tartrate 25 mg PO DAILY #10 tablet 11/07/17 Nitroglycerin 0.3 mg SL ONCE PRN #1 tab.subl 11/07/17 Medical Decision Making ED Course/Re-evaluation: Patient has had his prescriptions filled previously at [facility] in [place]. We will call the pharmacy as the patient does not know his regular doses of lisinopril and metoprolol. Case management has been involved. We are unable to find any record of of the patient's prescriptions where he thinks that he may have fill them in the past. Patient and I agree that we would start him on medication and encouraged him to keep his follow-up appointment with his PCP on Monday. He expresses understanding and agreement Differential Diagnosis: Hypertension and noncompliance. No evidence for acute coronary syndrome, pneumonia, pulmonary embolus Departure - Departure Disposition: Home, Routine, Self-Care Clinical Impression: Hypertension Qualifiers: Hypertension type: essential hypertension Qualified Code(s): I10 - Essential ( primary) hypertension Condition: Good Instructions: Hypertension (ED) Additional Instructions: Metoprolol and lisinopril for blood pressure. Nitroglycerin as needed. Return for worsening symptoms. We cannot find your doses of medication at the pharmacy. Keep her follow-up appointment Dr. Campos on Monday without fail. Referrals: Luis Daniel Campos MD [Primary Care Provider] - 5-7 days, call for appt. Prescriptions: Lisinopril 10 mg PO DAILY #10 tablet Metoprolol Tartrate 25 mg PO DAILY #10 tablet Nitroglycerin 0.3 mg SL ONCE PRN #1 tab.subl PRN Reason: Chest Pain
[2017-11-07 18:04] VITALS: BP 129/88; PULSE 92; O2SAT 98
== END 2017-11-07 18:08 | disposition home or self-care (01) ==
DX: I10 Essential (primary) hypertension (principal); F17.200 Nicotine dependence, unspecified, uncomplicated; Z79.82 Long term (current) use of aspirin

== ENCOUNTER 2018-03-16 08:30 | Emergency (ER) | payer MEDICAID ==
[2018-03-16 08:38] VITALS: BP 125/89
--- NOTE | 2018-03-16 08:53 | EDPHY ---
H & P Stated Complaint: RASH ON ARMS AND LEGS FOR 4 DAYS Time Seen by Provider: 03/16/18 08:45 HPI/ROS: CHIEF COMPLAINT: Skin excoriation HISTORY OF PRESENT ILLNESS: The patient is a 43-year-old man who has a history of anxiety provoked skin excoriation. He tends to pick his skin at night when he is asleep. He has been taking citalopram successfully to prevent this. He ran out 2 days ago however in is starting to develop new wound on his forearms. 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 He is requesting a doctors note for tomorrow. He is also requesting a dose for this evening. REVIEW OF SYSTEMS: Constitutional: denies: chills, fever, recent illness, recent injury EENTM: denies: blurred vision, double vision, nose congestion Respiratory: denies: cough, shortness of breath Cardiac: denies: chest pain, irregular heart rate, lightheadedness, palpitations Gastrointestinal/Abdominal: denies: abdominal pain, diarrhea, nausea, vomiting, blood streaked stools Genitourinary: denies: dysuria, frequency, hematuria, pain Musculoskeletal: denies: joint pain, muscle pain Skin: See above Neurological: denies: headache, numbness, paresthesia, tingling, dizziness, weakness Hematologic/Lymphatic: denies: blood clots, easy bleeding, easy bruising Immunologic/allergic: denies: HIV/AIDS, transplant EXAM: GENERAL: Well-appearing, well-nourished and in no acute distress. HEAD: Atraumatic, normocephalic. EYES: Pupils equal round and reactive to light, extraocular movements intact, sclera anicteric, conjunctiva are normal. ENT: TMs normal, nares patent, oropharynx clear without exudates. Moist mucous membranes. NECK: Normal range of motion, supple without lymphadenopathy or JVD. LUNGS: Breath sounds clear to auscultation bilaterally and equal. No wheezes rales or rhonchi. HEART: Regular rate and rhythm without murmurs, rubs or gallops. ABDOMEN: Soft, nontender, normoactive bowel sounds. No guarding, no rebound. No masses appreciated. BACK: No CVA tenderness, no spinal tenderness, step-offs or deformities EXTREMITIES: Normal range of motion, no pitting or edema. No clubbing or cyanosis. NEUROLOGICAL: Cranial nerves II through XII grossly intact. Normal speech, normal gait. 5/5 strength, normal movement in all extremities, normal sensation PSYCH: Normal mood, normal affect. SKIN: Excoriated lesions to both forearms and hands, no erythema, no vesicles. Source: Patient Exam Limitations: No limitations - Personal History Current Tetanus Diphtheria and Acellular Pertussis (TDAP): Yes Tetanus Vaccine Date: 2015 - Medical/Surgical History Hx Asthma: No Hx Chronic Respiratory Disease: No Hx Diabetes: No Hx Cardiac Disease: Yes Hx Renal Disease: No Hx Cirrhosis: No Hx Alcoholism: No Hx HIV/AIDS: No Hx Splenectomy or Spleen Trauma: No Other PMH: chronic back pain/sciatica, HTN, cardiac stent. "narrow heart valve " - Family History Significant Family History: No pertinent family hx - Social History Smoking Status: Current every day smoker Alcohol Use: Sober Constitutional: Initial Vital Signs Temperature (C) 37.1 C 03/16/18 08:35 Heart Rate 104 H 03/16/18 08:35 Respiratory Rate 16 03/16/18 08:35 Blood Pressure 125/89 H 03/16/18 08:35 O2 Sat (%) 95 03/16/18 08:35 O2 Delivery Mode Room Air Allergies/Adverse Reactions: hydrocodone Allergy (Mild, Verified 03/16/18 08:38) itchy rash Home Medications: Medication Instructions Recorded Aspirin 81mg (*) 11/03/17 Lisinopril 10 mg PO DAILY #10 tablet 11/07/17 Metoprolol Tartrate 25 mg PO DAILY #10 tablet 11/07/17 Nitroglycerin 0.3 mg SL ONCE PRN #1 tab.subl 11/07/17 Citalopram [CeleXA 20 MG] 20 mg PO HS #1 tab 03/16/18 Medical Decision Making ED Course/Re-evaluation: Patient is requesting a work note and a prescription for 1 pill. I am happy to provide these for him. He feels that he has had good success with this medication overall. Differential Diagnosis: Partial list of the Differential diagnosis considered include but were not limited to; skin excoriation, anxiety, OCD and although unlikely based on the history and physical exam, I also considered poison sandra, scabies, IV drug abuse. I discussed these differential diagnoses and the plan with the patient as well as the usual and expected course. The patient understands that the diagnosis is provisional and that in medicine we are not always correct and that further workup is often warranted. Usual and customary warnings were given. All of the patient's questions were answered. The patient was instructed to return to the emergency department should the symptoms at all worsen or return, otherwise to followup with the physician as we discussed. Departure - Departure Disposition: Home, Routine, Self-Care Clinical Impression: Excoriation (skin-picking) disorder Condition: Fair Instructions: Citalopram (By mouth) Referrals: Luis Daniel Campos MD [Primary Care Provider] - As per Instructions Stand Alone Forms: Work Limited Duty, Statement of Treatment Prescriptions: Citalopram [CeleXA 20 MG] 20 mg PO HS #1 tab
== END 2018-03-16 08:59 | disposition home or self-care (01) ==
DX: F42.4 Excoriation (skin-picking) disorder (principal); F17.200 Nicotine dependence, unspecified, uncomplicated; I10 Essential (primary) hypertension; Z79.82 Long term (current) use of aspirin; Z95.5 Presence of coronary angioplasty implant and graft

== ENCOUNTER 2018-03-19 10:17 | Emergency (ER) | payer MEDICAID ==
[2018-03-19] MEDS ORDERED: CITALOPRAM 20 MG TAB PO ONE (10:32)
[2018-03-19] MEDS ORDERED: hydrOXYzine HCL 50 MG TAB PO ONE (10:32)
--- NOTE | 2018-03-19 10:35 | EDPHY ---
H & P Stated Complaint: rash/itching to both arms since off his escitalopram Time Seen by Provider: 03/19/18 10:33 HPI/ROS: HPI: This is a 43-year-old male who presents with Chief Complaint: rash/itching to both arms since off his escitalopram Location: Arm Quality: Itching, rash Duration: Chronic Signs and Symptoms: No bleeding, no radiation, no numbness, no weakness, no tingling, no incontinence, no decreased range of motion, no swelling, no pain, no fever, no skin color changes Timing: Acute Severity: Moderate Context: Patient presents from work release with requesting citalopram 20 mg be given to him. He reports that he has chronic pruritus induced by anxiety. He was seen in this emergency room several days ago on 03/16/2018 and given citalopram in the ER as well as a prescription for the same. He reports that he went to the pharmacy and they advised him that he is unable to fill this prescription until tomorrow or he could pay [id number] if he wanted immediately. Patient denies any redness, drainage, warmth. Modifying Factors: He took Benadryl 25 mg 1 hr prior to arrival with mild relief of his itching Comment: ROS: see HPI Constitutional: No fever, no chills, no weight loss Eyes: No blurred vision Respiratory: No shortness of breath, no cough Cardiovascular: No chest pain Gastrointestinal: No nausea, no vomiting no diarrhea Genitourinary: No dysuria Extremities: No myalgias Neurologic: No weakness, no numbness Skin: No rashes Hematologic: No bruising, no bleeding MEDICAL/SURGICAL/SOCIAL HISTORY: Medical history: chronic back pain/sciatica, HTN, cardiac stent, "narrow heart valve" Surgical history: Denies Social history: Currently in work release CONSTITUTIONAL: Extremely well-appearing middle-aged white male, awake and alert, no obvious distress HEENT: Atraumatic and normocephalic, PERRL, EOMI. Nares patent; no rhinorrhea; no nasal mucosal edema. Tympanic membranes clear. Oropharynx clear, no exudate and moist pink mucosa. Airway patent. No lymphadenopathy. No meningismus. Cardiovascular: Normal S1/S2, regular rate, regular rhythm, without murmur rub or gallop. PULMONARY/CHEST: Symmetrical and nontender. Clear to auscultation bilaterally. Good air movement. No accessory muscle usage. ABDOMEN: Soft, nondistended, nontender, no rebound, no guarding, no peritoneal signs, no masses or organomegaly. No CVAT. EXTREMITIES: 2/2 pulses, strength 5/5, no deformities, no clubbing, no cyanosis or edema. NEUROLOGICAL: no focal neuro deficits. GCS 15. SKIN: Warm and dry, no areas of fluctuance, no vasculitis, no petechiae, no erythema. no rash. Good capillary refill. Source: Patient, RN/MD, Old records Exam Limitations: No limitations - Personal History Current Tetanus Diphtheria and Acellular Pertussis (TDAP): Yes Tetanus Vaccine Date: 2015 - Medical/Surgical History Hx Asthma: No Hx Chronic Respiratory Disease: No Hx Diabetes: No Hx Cardiac Disease: Yes Hx Renal Disease: No Hx Cirrhosis: No Hx Alcoholism: No Hx HIV/AIDS: No Hx Splenectomy or Spleen Trauma: No Other PMH: chronic back pain/sciatica, HTN, cardiac stent. "narrow heart valve " - Social History Smoking Status: Current every day smoker Constitutional: Initial Vital Signs Temperature (C) 37 C 03/19/18 10:26 Heart Rate 88 03/19/18 10:26 Respiratory Rate 18 03/19/18 10:26 Blood Pressure 127/76 H 03/19/18 10:26 O2 Sat (%) 97 03/19/18 10:26 O2 Delivery Mode Room Air Allergies/Adverse Reactions: hydrocodone Allergy (Mild, Verified 03/19/18 10:27) itchy rash Home Medications: Medication Instructions Recorded Aspirin 81mg (*) 11/03/17 Lisinopril 10 mg PO DAILY #10 tablet 11/07/17 Metoprolol Tartrate 25 mg PO DAILY #10 tablet 11/07/17 Nitroglycerin 0.3 mg SL ONCE PRN #1 tab.subl 11/07/17 Citalopram [CeleXA 20 MG] 20 mg PO HS #1 tab 03/16/18 Medical Decision Making ED Course/Re-evaluation: Vital signs reviewed and stable upon arrival. No signs of neurovascular compromise/tenting of skin/compartment syndrome/ extremities and joints examined above and below area of concern and are neurovascularly intact/cellulitis/vasculitis. Patient given citalopram 20 mg and hydroxyzine 50 mg while in the emergency room. I did complete his work release paperwork that requires him to check in every hour. This patient was seen under the supervision of my secondary supervising physician. I evaluated care for this patient independently. Discussed this patient with Dr. Penny who did not see the patient. Differential Diagnosis: Differential diagnosis includes but is not limited to pruritus, skin excoriation , anxiety, OCD. Departure - Departure Disposition: Home, Routine, Self-Care Clinical Impression: Pruritus, Has run out of medications Condition: Good Instructions: Itchy Skin (ED) Additional Instructions: Please fill your citalopram as directed tomorrow. Continue to take Benadryl 25-50 mg every 4-6 hours as needed for itching. Referrals: Luis Daniel Campos MD [Primary Care Provider] - 5-7 days, if not improved
[2018-03-19 10:41] VITALS: BP 130/87
== END 2018-03-19 10:52 | disposition home or self-care (01) ==
DX: L29.9 Pruritus, unspecified (principal); I10 Essential (primary) hypertension; F17.200 Nicotine dependence, unspecified, uncomplicated; Z79.82 Long term (current) use of aspirin; Z91.14 Patient's other noncompliance with medication regimen; Z95.5 Presence of coronary angioplasty implant and graft